=== PATIENT | male | born 1965 | race Caucasian/White ===

== ENCOUNTER 2018-06-23 13:27 | Observation (INO) | payer OTHER ==
--- NOTE | 2018-06-23 11:32 | CONS ---
GASTROENTEROLOGY CONSULT/HISTORY AND PHYSICAL DATE: 06/23/2018. CONSULTING PHYSICIAN: Lucille Morris. 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 His appetite decreased and his energy was down, but he was still able to go to work and bike around town as he likes to commute to work via biking. He noted his urine turned dark and then later his stools became light. He began feeling a little bit of heartburn. He did not have any fever or back pain or abdominal distention. He has never had anything like this before. His primary physicians have not needed to treat him for gastrointestinal problems. PAST MEDICAL HISTORY: 1. [place] tooth removal. 2. Hyperplastic polyps in the rectum at screening colonoscopy April 2018. MEDICATIONS: None as an outpatient Allergies - PCN SOCIAL HISTORY: He is . He eats a very healthy diet. 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 He was born in [facility] as his father was with the [facility]. 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 REVIEW OF SYSTEMS: He was treated for Lyme disease four or five years ago and says that was the most significant illness Dr Hall has ever needed to treat. There is no history of cardiac disease, angina, palpitations, syncope, murmur, hemoptysis, chronic cough, prior jaundice or liver disease. He drinks very sparingly. He is a nonsmoker. PHYSICAL EXAMINATION: He is a jaundiced man in no distress. HEENT exam is unremarkable. He has no adenopathy. His lungs are clear. Heart sounds are normal. The abdomen is symmetric, firm, and there is a little bit of discomfort with palpation in the right upper quadrant and a little bit of fullness. Rectal not indicated. Extremities show no edema or deformity. Neurologic is nonfocal, he gets about easily with a normal gait, cranial nerves , strength, and coordination. LABORATORY DATA: Two days ago, hemoglobin 13, bilirubin 14, amylase and lipase mildly elevated. INR drawn today and pending- (0.90) CT REVIEW: 3 cm pancreatic head mass with dilation of the pancreatic duct and bile ducts. Coronal images show probable impingement on the portal vein. There are no obvious mets. His slender build limits evaluation of the tissue planes around the pancreas. IMPRESSION: Pancreatic head mass with obstructive jaundice. His and father were present during a discussion (assisted by a diagram) about the priorities of relieving biliary obstruction and trying to establish tissues diagnosis, and then there is still the prospect of a surgical cure. His INR will be checked and ERCP may take place later today hopefully with placement of a plastic stent. He has been NPO since 11:00 p.m. last night. [id number]/[facility] #: [id number] MAXIMILIANO
[2018-06-23] MEDS ORDERED: Indomethacin SUPP(NF) 50 MG SUP PR ONE (14:00)
[2018-06-23] MEDS ORDERED: Famotidine IV* 10 MG/ML 2 ML (20 mg) IV ONE (14:28)
[2018-06-23] MEDS ORDERED: Buffered Lidocaine 0.9% SYRIN* 5 ML/SYR SYRINGE INTRADERM ONE (14:28)
[2018-06-23] MEDS ORDERED: Dexamethasone IV* 4 MG/ML 1 ML (4 MG) IV SLOW PU ONE (14:28)
[2018-06-23] MEDS ORDERED: Famotidine IV* 10 MG/ML 2 ML (20 mg) ONE (14:38)
[2018-06-23] MEDS ORDERED: Dexamethasone IV* 4 MG/ML 1 ML (4 MG) ONE (14:38)
[2018-06-23] MEDS ORDERED: Midazolam* 1 MG/ML 5 ML VIAL (5 MG) ONE (14:45)
[2018-06-23] MEDS ORDERED: fentaNYL* 50 MCG/ML 5 ML VIAL (250 MCG VIAL) ONE (14:45)
[2018-06-23] MEDS ORDERED: Atracurium* 10 MG/ML 10 ML VIAL ONE (14:45)
[2018-06-23] MEDS ORDERED: Propofol* 10 MG/ML 20 ML BTL IV PUSH ONE (14:50)
[2018-06-23] MEDS ORDERED: Lidocaine 2% PF * 5 ML VIAL ONE (14:50)
[2018-06-23] MEDS ORDERED: Ondansetron INJ* 2 MG/ML VIAL ONE (14:50)
[2018-06-23] MEDS ORDERED: Levofloxacin 500 MG IVPREMIX(* 500 MG/100 ML BAG IVPB ONE (15:00)
[2018-06-23] MEDS ORDERED: fentaNYL* 50 MCG/ML 2 ML VIAL (100 MCG VIAL) ONE (16:38)
[2018-06-23] MEDS ORDERED: DiMENhydriNATE IV* 50 MG/ML VIAL IV PUSH PRN (17:06)
[2018-06-23] MEDS ORDERED: fentaNYL* 50 MCG/ML 2 ML VIAL (100 MCG VIAL) IV PRN (17:06)
[2018-06-23] MEDS ORDERED: Naloxone* 0.4 MG/ML 1 ML VIAL IV PRN (17:06)
[2018-06-23] MEDS ORDERED: HYDROmorphone INJ* 0.5 MG/0.5 ML SYRINGE IV PRN (17:06)
[2018-06-23] MEDS ORDERED: Ondansetron INJ* 2 MG/ML VIAL IV PRN (17:06)
--- NOTE | 2018-06-23 18:09 | RAD ---
CPT II Codes: G9500 INDICATION: Pancreatic mass TECHNIQUE: Intraoperative fluoroscopy was provided during ERCP. FINDINGS: 4 spot films depict endoscopic retrograde cholangiography demonstrating narrowing of the lower half of the common bile duct with more proximal dilatation (exact diameter measurement is not possible without real-time calibration). Final image depicts an anatomically aligned CBD stent with the tip terminating at the expected location of the second portion the duodenum. Fluoroscopy time: 3 minutes and 32 seconds IMPRESSION: As above.
[2018-06-23] MEDS ORDERED: HYDROmorphone INJ1* 1 MG/ML SYRINGE IV SLOW PU PRN (19:00)
--- NOTE | 2018-06-23 21:01 | HP ---
ADMISSION HISTORY AND PHYSICAL: DATE OF ADMISSION: 06/23/18 CHIEF COMPLAINT: Painless jaundice and malaise 1 week prior to admission. HISTORY OF PRESENT ILLNESS: The patient is a 53-year-old gentleman without any significant past medical history other than hyperplastic polyps in his rectum that was done by a screening colonoscopy back in April of 2018 and wisdom tooth removal, who developed a sense of malaise as well as jaundice 1 week prior to admission. He mentioned that he has had decreased appetite and easy fatigability, but however, he was able to go to work in bike around town as he would like to commute to work by biking. He also noted that his urine was tea colored and his stools later became light. He then began feeling a little bit of some heartburn as well. He did not report any fevers nor abdominal pain nor distention. He was seen by Dr. Coleman in his office for his painless jaundice and has palpated an epigastric mass that is likely consistent with a pancreatic head mass and CT scan and abdominal ultrasound were done the day prior to admission. The ultrasound reveals a 3-cm pancreatic head/peripancreatic mass associated with biliary obstruction, and suggested multiphase CT imaging with pancreatic protocol. The abdominal CT and pelvis done on the same date suggests a 3-cm mass in the head of the pancreas with associated obstruction with gallbladder distention and intrahepatic ductal dilatation and dilatation of the pancreatic duct. He was then set up the following day for an ERCP with stent placement and he has done well perioperatively. The cholangiogram demonstrated narrowing of the lower half of the common bile duct with more proximal dilatation prior to the procedure and the final cholangiogram reveals an anatomically aligned CBD stent with a tip terminating at the expected location of the second part of the duodenum. He is being admitted to our service given pancreatic brushings as well as cholangiogram was done and we will watch him overnight to see whether he has any risk for post ERCP pancreatitis given he is high risk for this and hence this admission for observation. PAST MEDICAL AND SURGICAL HISTORY: [place] tooth removal, hyperplastic polyps in the rectum at screening colonoscopy in April 2018. MEDICATIONS: Home medications, none as an outpatient. ALLERGIES: To PENICILLIN, which causes rash. FAMILY HISTORY: His father has had history of prostate cancer, kidney stones, and gallbladder stones. No family history of diabetes, hypertension, CVA, hypercholesterolemia, and other carcinomas and absence of hepatobiliary cancer in the family history. 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 He was born in [facility], as his father is working for the [employer]. REVIEW OF SYSTEMS: The patient denied any recent headaches, dizziness, fevers, chills, nausea, vomiting, chest pain, shortness of breath, increased coughing or sputum production, abdominal pain, diarrhea, constipation, pain and/or increased frequency on urination, myalgias or arthralgias, throat pain. He does have new jaundice and easy fatigability and malaise as described above. The rest of the 14- point review of systems is otherwise unremarkable. PHYSICAL EXAMINATION GENERAL APPEARANCE: The patient is awake, alert, and oriented x3, not in acute distress. VITAL SIGNS: Reveal the most recent vital signs of records with blood pressure of 123/76, 63 beats per minute heart rate, 17 per minute respiratory rate, saturating at 98% on room air. HEENT: Normocephalic, atraumatic. PERRLA. Extraocular muscles intact. Negative for icterus. Moist oral mucosa. Negative throat erythema. NECK: Soft, supple with no cervical lymphadenopathy. No JVD. CHEST: Clear to auscultation bilaterally. Good air entry. No wheezes, rales, or rhonchi. HEART: S1, S2 within normal limits. Regular rate and rhythm. No murmurs, rubs , and gallops. ABDOMEN: Soft, nondistended, nontender. Normoactive bowel sounds x4 quadrants. EXTREMITIES: No cyanosis, clubbing, or edema. PSYCHIATRIC: No active psychosis, depression, suicidal or homicidal ideations. SKIN: Warm to touch. LABORATORY DATA: Most recent and pertinent laboratories revealed CBC with a WBC that is normal, platelets are normal, H and H slightly low at 13.9 and 39. Sodium and potassium were normal. BUN and creatinine were found to be normal. Total bilirubin was found be to 18.10, AST of 212, ALT of 618, ALP of 513. ASSESSMENT AND PLAN: 1. Painless pancreatic head mass with obstructive jaundice, status post ERCP with common bile duct stent placement. At this point, given he has received contrast via ERCP, he is certainly at risk for postprocedural pancreatitis. We will check amylase and lipase levels in a.m. and we will only place him at this point at sips of clear liquids and if he tolerates, we will place him on ad libitum diet, but clear liquids for now. I have discussed his case with Dr. Coleman. He mentions that tomorrow he will touch base with people at [facility] for a possible endoscopic ultrasound, either tomorrow or possibly next week. In either case, either he gets transferred or we will discharge him home as long as he is hemodynamically stable with no other medical issues. 2. Perioperative pain. The patient is currently pain-free and has received pain meds perioperatively. We will place the patient on 0.5 mg IV q.4 p.r.n. with appropriate holding orders. 3. DVT prophylaxis. We will place the patient on SCDs. The patient is at low risk and we will have the patient's activity be out of bed to chair with assist. 4. Disposition: As above. [id number]/[facility] #: [id number] MTDD
--- NOTE | 2018-06-24 01:49 | PRO ---
DATE: 06/23/18 - ROOM #[id number] REFERRING PHYSICIAN: Sergio Hall.* PROCEDURE: ERCP and sphincterotomy with biliary cytology and placement of 9 cm 8.5- Russian plastic stent. INDICATION: This 53-year-old man presented with painless jaundice. See separate consult history and physical. His bilirubin was 18 preprocedure, INR was 0.90. He had not had any fever. Informed consent was obtained in the office. ENDOSCOPIST: Dr. Coleman. ANESTHESIA: Dr. Bynum. MEDICATION: Levaquin 500 mg IV preprocedure and indomethacin suppository 50 mg. FINDINGS: He is a healthy appearing, jaundiced man, in no overt distress. He was positioned on the table semiprone with right shoulder elevated. ERCP: Esophagus - 20% views were normal. Stomach - summing insertion and withdrawal with an intentional retroflexion, 70 % to 80% views were normal. Duodenum - the pylorus and bulb appeared normal. The contours of the second through fourth portions of the duodenum were normal. Papilla - low profile and not discharging any fluid. A standard sphincterotome was inserted. Multiple attempts to cannulate were done, both with a free wire and with a slight bow to the sphincterotome which varied. The tip of the device was seemed consistently to deviate towards the 10:30 or 11 position. The sphincterotome was then rotated clockwise several turns in 2 different sequences. This had resulted in a different orientation of the cannula. Cannula went up into the common duct. Pancreatic duct was never injected. The guidewire was placed deeply into the liver. An estimated 9 to 10 mm sphincterotomy was done about a 2 o'clock orientation, there was no bleeding. A little bit of fluid discharge. Exchange was then made for the biliary cytology brush. The cytology brush was placed into the dilated segment of upper common duct and then withdrawn with agitation several times. This clearly functionally dilated the area as a fair amount of bile then discharged. There was no blood seen. Based on a long irregular ratty-looking stricture, a 9-cm 8.5-Russian stent was chosen and inserted with good position documented via postprocedure film and spillage of copious amounts of bile and drainage of the dye. IMPRESSION: 1. Generally normal upper GI anatomy - limited views. 2. 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 It has been brushed and stented. He will likely be referred to a major center for consideration of surgery though the length of the stricture is not good prognostically. Addendum; cytology read out as adenocarcinoma [id number]/[facility] #: [id number] MTDD
[2018-06-24 06:06] LABS: Hematocrit 37 % (42-52); Hemoglobin 12.7 g/dl (14.0-18.0); Mean Corpuscular HGB Conc 34 g/dl (31-36); Mean Corpuscular Hemoglobin 30 pg (27-31); Mean Corpuscular Volume 89 fL (80-94); Mean Platelet Volume 9.8 um3 (7.4-10.4); Platelet Count 194 10^3/ul (150-450); Red Cell Distribution Width 14 % (10.5-15); White Blood Count 13.4 10^3/ul (3.5-10.8)
[2018-06-24 08:44] VITALS: BP 124/82
[2018-06-24] MEDS ORDERED: Magnesium Oxide TAB* 400 MG PO ONE (08:54)
--- NOTE | 2018-06-24 14:00 | DS ---
CC: Dr. Prashanth Hall.* DISCHARGE SUMMARY: DATE OF ADMISSION: 06/23/18. DATE OF DISCHARGE: 06/24/18. PROVIDER: Tamy Husain NP. ATTENDING PHYSICIAN: Dr. Waters * (report dictated by Tamy Husain NP). PRIMARY CARE PROVIDER: Dr. Prashanth Hall. SULFONATION EQUIPMENT OPERATOR: Dr. Coleman. REFERRING TO: Dr. J Luis King. DISCHARGE DIAGNOSIS: Pancreatic head mass with obstructive jaundice status post ERCP with common bile duct stent placement. HISTORY OF PRESENT ILLNESS AND HOSPITAL COURSE: Please see history and physical by Dr. Langston for full admission details. But in summary, this is a 53-year-old male without significant past medical history other than hyperplastic polyps in his rectum, which was done by screening colonoscopy back in April 2018 who developed a sense of malaise a couple of weeks ago reporting his appetite decreased and his energy was low. However, he was still able to bike to work. The patient has reported he noted that his urine turned dark and later his stools became light and began to develop what he described as, "heartburn." He denied having any fevers, back pain, abdominal distension. He was noted to be jaundiced and he was seen by Dr. Coleman in the office for painless jaundice and there was concern for an epigastric mass upon palpation. The patient then underwent a CT scan and abdominal ultrasound in which the ultrasound revealed a 3-cm pancreatic head/peripancreatic mass associated with biliary obstruction and suggested multiphase CT imaging with pancreatic protocol. The abdominal CT and pelvis done in the same date suggested a 3-cm mass in the head of the pancreas with associated obstruction with gallbladder distension and intrahepatic ductal dilatation and dilatation of the pancreatic duct. He was sent up for an ERCP with stent placement which was done yesterday. Hull biopsies were taken, which are still pending at time of dictation. I spoke with Dr. Coleman this morning who has discussed the discharge plan with the patient. As well I spoke to the patient about the discharge instructions. The patient will follow up with Dr. J Luis King as well as follow up with Dr. Kapoor, oncologist. Today, on evaluation, the patient reports he would like to go home. He feels steady on his feet. Overall, he reports he feels better today after the stent placement. His labs on repeat are showing a decrease total bilirubin from 18.10 down to 7.60 today. His AST and ALTs are trending down as well as his amylase and lipase. The patient is tolerating oral intake. He denies any pain this morning. No fevers or chills. REVIEW OF SYSTEMS: A 14-point review of systems is performed. All the pertinent positives and negatives were mentioned in the history of present illness otherwise negative. PHYSICAL EXAMINATION: Vital Signs: Temperature 97.6, heart rate 57, O2 sat 98 % on room air, respirations 16, blood pressure is 122/71. General Appearance: Well- developed 53-year-old male sitting up at the side of the bed, appears jaundiced, in no acute distress, alert and oriented x3. HEENT: Head is normocephalic, atraumatic. Pupils are reactive to light. Scleral icterus noted bilaterally. Cardiac: S1, S2. Regular rate and rhythm. No murmurs, rubs or gallops appreciated. Lungs are clear to auscultation bilaterally. Good aeration throughout. Abdomen: Soft, mild epigastric tenderness with palpation. Normal bowel sounds throughout. Extremities: No clubbing, cyanosis or edema. Neurological: Alert and oriented x3. No focal deficits noted. Cranial nerves II through XII are grossly intact. Strength is 5/5 throughout with a steady gait. DISCHARGE MEDICATIONS: No medications. DISCHARGE PLAN: The patient will be discharged to home today. He is to follow up with Dr. J Luis King as well as Dr. Kapoor and reports he and Dr. Coleman had spoken and there is a plan set in place. Worsening signs and symptoms were discussed with the patient and to return to the emergency department with any concerns. Follow up with primary care provider within 1 week with followup labs on Thursday with results to PCP. TIME SPENT: Approximately 60 minutes were spent on this discharge. TAMY HUSAIN NP [id number]/[facility] #: [id number] MAXIMILIANO
== END 2018-06-24 10:30 | disposition home or self-care (01) ==
LOC: OR 13:27 → SSU 19:07
PROVIDERS: ADMIT Student in an Organized Health Care Education/Training Program; ATTEND Hospitalist
PROC: 0F798DZ Dilation of Common Bile Duct with Intraluminal Device, Via Natural or Artificial Opening Endoscopic (ICD-10-PCS; 2018-06-23)
PROC: 0FB98ZX Excision of Common Bile Duct, Via Natural or Artificial Opening Endoscopic, Diagnostic (ICD-10-PCS; principal; 2018-06-23 15:00)
DX: C24.0 Malignant neoplasm of extrahepatic bile duct (principal); K86.89 Other specified diseases of pancreas; R17 Unspecified jaundice; Z88.0 Allergy status to penicillin; Z87.19 Personal history of other diseases of the digestive system; Z80.42 Family history of malignant neoplasm of prostate
CPT/HCPCS: 36415; 74328; 80053; 82150; 83690; 83735; 84100; 85027; 88112; C1769; C1876; G0378; J1100; J1956; J2250; J2405; J2704; J3010

== ENCOUNTER 2018-07-19 06:07 | Day surgery (SDC) | payer OTHER ==
[~2018-07-19 06:07] MED LIST: Buffered Lidocaine 0.9% SYRIN* 5 ML/SYR SYRINGE INTRADERM ONE; Famotidine IV* 10 MG/ML 2 ML (20 mg) IV ONE
[2018-07-19] MEDS ORDERED: ceFAZolin 2 GM in NS PREMIX(*) 2 GM/100 ML BAG IVPB ONE (06:12)
[2018-07-19] MEDS ORDERED: Famotidine IV* 10 MG/ML 2 ML (20 mg) ONE (06:12)
[2018-07-19] MEDS ORDERED: Lidocaine 1% INJ* 10 MG/ML 30 ML SDV ONE (07:02)
[2018-07-19] MEDS ORDERED: Ondansetron INJ* 2 MG/ML VIAL ONE (07:05)
[2018-07-19] MEDS ORDERED: Midazolam* 1 MG/ML 5 ML VIAL (5 MG) ONE (07:05)
[2018-07-19] MEDS ORDERED: Ketorolac INJ* 30 MG/ML 1 ML VIAL ONE (07:05)
[2018-07-19] MEDS ORDERED: KETAMINE HCL* 50 MG/ML 10 ML VIAL ONE (07:05)
[2018-07-19] MEDS ORDERED: Lidocaine 2% PF * 5 ML VIAL ONE (07:05)
[2018-07-19] MEDS ORDERED: Propofol* 10 MG/ML 20 ML BTL IV PUSH ONE (07:05)
[2018-07-19] MEDS ORDERED: Dexamethasone IV* 4 MG/ML 1 ML (4 MG) ONE (07:05)
[2018-07-19] MEDS ORDERED: fentaNYL* 50 MCG/ML 2 ML VIAL (100 MCG VIAL) ONE (07:05)
[2018-07-19] MEDS ORDERED: Midazolam* 1 MG/ML 2 ML VIAL (2 MG) ONE (07:35)
[2018-07-19] MEDS ORDERED: Naloxone* 0.4 MG/ML 1 ML VIAL IV PRN (08:02)
[2018-07-19] MEDS ORDERED: oxyCODONE/Acetamin 5/325 MG* TAB PO PRN (08:02)
[2018-07-19] MEDS ORDERED: fentaNYL* 50 MCG/ML 2 ML VIAL (100 MCG VIAL) IV PRN (08:02)
[2018-07-19] MEDS ORDERED: DiMENhydriNATE IV* 50 MG/ML VIAL IV PUSH PRN (08:02)
--- NOTE | 2018-07-19 08:41 | BRIEFOPN ---
Brief Operative Note - Surgery Procedures: Procedures OPERATIVE REPORT PRE-OP: Pancreatic cancer POST-OP: Same PROCEDURE:Insertion of 8F left chest wall PowerPort, needle in SURGEON: MD Justino ANESTHESIA:Local with MAC Dr. Boykin ASST: none IVF:min EBL:min SPECIMEN:none DRAIN: none WOUND CLASS:One COMPLICATIONS: none TO PACU
--- NOTE | 2018-07-19 09:16 | RAD ---
Indication: Power port placement. Comparison: July 07, [address] Technique: Upright AP 0846 hours Report: LEFT PowerPort catheter tip at level of superior vena cava directed central. No focal pulmonary lesion, compelling alveolar consolidation, pleural effusion, pneumothorax. The heart, pulmonary vasculature, and mediastinal contours are unremarkable. IMPRESSION: #. Unremarkable post procedure radiograph after LEFT chest port placement.
[2018-07-19 09:44] VITALS: BP 120/74
--- NOTE | 2018-07-19 10:37 | RAD ---
CPT II Codes: G9500 INDICATION: Pancreatic cancer TECHNIQUE: Intraoperative fluoroscopy was provided during Mediport placement. FINDINGS: 2 spot films depict left subclavian vein Mediport placement with the tip of the catheter at the cavoatrial junction. Immediately inferior to the subcutaneous port is a curved metallic object consistent with a curved suture needle. Fluoroscopy time: 87.4 seconds IMPRESSION: 1. Left subclavian vein Mediport placement with the tip at the cavoatrial junction. 2. Immediately inferior to the left Mediport is a curved metallic object consistent with a suture needle.
--- NOTE | 2018-07-19 22:35 | OP ---
CC: Virgil Kapoor MD * DATE OF OPERATION: 07/19/18 - [facility] DATE OF : 69 SURGEON: Luke Badillo MD EMBEDDED LINUX DEVELOPER: None. ANESTHESIOLOGIST: Dr. Boykin. ANESTHESIA: Local with monitored anesthesia care. PRE-OP DIAGNOSIS: Pancreatic cancer. POST-OP DIAGNOSIS: Pancreatic cancer. OPERATIVE PROCEDURE: Insertion of a left chest wall 8-Pashto PowerPort, needle in. ESTIMATED BLOOD LOSS: Minimal. IV FLUIDS: Minimal. SPECIMENS: None. WOUND CLASSIFICATION: One. DRAINS: None. DESCRIPTION OF PROCEDURE: Written informed consent was obtained, the left chest was marked with inedible ink and preoperative antibiotics were administered. The patient was taken to the operating room and placed in a supine position. Sequential compression devices were placed in the lower extremities and a warming blanket was applied. The left and right chest and neck were prepped and draped in the usual sterile fashion. Time-out verification was completed. The patient was placed in Trendelenburg position and 1% lidocaine was infiltrated in the left chest wall just below the mid portion of the clavicle and using an 18- gauge Geiger needle, the subclavian vein was punctured on the first pass the clavicle with good blood return. The guidewire was inserted without difficulty and confirmed to be into the superior vena cava by fluoroscopy. Next, additional lidocaine was infiltrated inferior to my stick site and a transverse incision was made and a subcutaneous pocket was made large enough to permit the port to be placed subcutaneously. The catheter was then tunneled from the initial puncture site to the pocket site , and using a sheath dilator peel-away system the catheter was inserted into the junction between the superior vena cava and the right atrium. The catheter was then cut to the appropriate length. It blanche blood well and flushed distally without difficulty. It was then attached to the port and placed in the subcutaneous pocket. The port was sutured in two places with 3-0 Prolene suture to the underlying muscle fascia. Hemostasis was assured. The incisions were closed in layers of 3-0 and 4-0 Vicryl suture and Steri-Strips, sterile dressings were applied. The right angle Moctezuma needle was then used to access the port through sterile field and flushed and withdrew blood well. It was subsequently flushed at the end with heparin solution and the needle remained in place and the catheter was clamped and covered with a sterile Tegaderm dressing. The patient tolerated the procedure well, was taken to the recovery room in stable condition. Postprocedural chest x-ray showed the catheter to be in good position without evidence of pneumothorax. [id number]/[facility] #: [id number] MTDD
== END 2018-07-19 09:47 | disposition home or self-care (01) ==
LOC: OR 06:07
PROVIDERS: ATTEND Surgery
DX: C25.0 Malignant neoplasm of head of pancreas (principal)
CPT/HCPCS: 71045; 76000; C1788; J0690; J1100; J1642; J1885; J2250; J2405; J2704; J3010

== ENCOUNTER 2018-08-28 02:17 | Emergency (ER) | payer OTHER ==
--- NOTE | 2018-08-28 03:12 | ED ---
HPI Febrile Illness - HPI Summary HPI Summary: This patient is a 53 year old M presenting to [facility] accompanied by his sister with a chief complaint of a fever over 101.4 degrees since 01:45. The patient rates the pain 0/10 in severity. Symptoms aggravated by nothing. Symptoms alleviated by nothing. Patient reports nausea. Patient has pancreatic CA, diagnosed in early June 2018, and is undergoing chemotherapy. Pt notes his last session was 5 days ago. 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 Patient denies any other medical conditions. - History of Current Complaint Chief Complaint: EDFever Time Seen by Provider: 08/28/18 02:45 Hx Obtained From: Patient, Family/Bottom Stop Attacher - patient's sister Onset/Duration: Started Hours Ago, Worse Since Timing: Lasting Hours Initial Severity: Mild Current Severity: Mild Pain Intensity: 0 Pain Scale Used: 0-10 Numeric Aggravating Factors: Nothing Alleviating Factors: Nothing Associated Signs and Symptoms: Nausea - Additional Pertinent History Primary Care Physician: LIDA - Allergy/Home Medications Allergies/Adverse Reactions: Allergies Allergy/AdvReac Type Severity Reaction Status Date / Time Penicillins Allergy Mild Rash Verified 08/28/18 02:25 PMH/Surg Hx/FS Hx/Imm Hx Endocrine/Hematology History: Denies: Hx Anticoagulant Therapy, Hx Blood Transfusions, Hx Bone Marrow Disease, Hx Diabetes, Hx Anemia Respiratory History: Reports: Hx Seasonal Allergies Denies: Hx Asthma, Hx Chronic Bronchitis, Hx Chronic Obstructive Pulmonary Disease (COPD), Hx Cystic Fibrosis, Hx Lung Cancer, Hx Pleural Effusion, Hx Pneumonia, Hx Pulmonary Edema, Hx Pulmonary Embolism, Hx Sleep Apnea, Other Respiratory Problems/Disorders GI History: Reports: Hx Gall Bladder Disease - this visit, Hx Jaundice - RECENT DX HAD STENT PLACED Denies: Hx Cirrhosis, Hx Crohn's Disease, Hx Diverticulosis, Hx Gastroesophageal Reflux Disease, Hx Gastrointestinal Bleed, Hx Hiatal Hernia, Hx Irritable Bowel, Hx Obstructive Bowel, Hx Ileostomy, Hx Pyloric Stenosis, Hx Ulcer, Other GI Disorders History: Denies: Hx Acute Renal Failure, Hx Benign Prostatic Hyperplasia, Hx Chronic Renal Failure, Hx Dialysis, Hx Kidney Infection, Hx Kidney Stones, Other Problems/Disorders Musculoskeletal History: Denies: Hx Arthritis, Hx Back Problems, Hx Bursitis, Hx Congenital Bone Abnormalities, Hx Fibromyalgia, Hx Gout, Hx Orthopedic Injury, Hx Osteoporosis, Hx Scoliosis, Hx Tendonitis Sensory History: Reports: Hx Contacts or Glasses - glasses Denies: Hx Hearing Aid Opthamlomology History: Reports: Hx Contacts or Glasses - glasses Neurological History: Denies: Hx Dementia, Hx Headaches, Hx Migraine, Hx Nerve Disease - Cancer History Hx Chemotherapy: No - will be starting chemo after powerport placed - Surgical History Surgery Procedure, Year, and Place: WISDOM TOOTH REMOVED Hx Anesthesia Reactions: No Infectious Disease History: No Infectious Disease History: Denies: Hx Hepatitis, Hx Tuberculosis, Traveled Outside the [place] in Last 30 Days - Family History Known Family History: Negative: Diabetes - Social History Alcohol Use: None Substance Use Type: Reports: None Smoking Status (MU): Never Smoked Tobacco Review of Systems Positive: Fever Negative: Chest Pain Negative: Cough Positive: Nausea Negative: Rash All Other Systems Reviewed And Are Negative: Yes Physical Exam - Summary Physical Exam Summary: GENERAL: Patient is a well-developed and nourished M who is lying comfortable in the stretcher. Patient is not in any acute respiratory distress. HEAD AND FACE: Normocephalic EYES: PERRLA, EOMI x 2. EARS: Hearing grossly intact. MOUTH: Oropharynx within normal limits. NECK: Supple, trachea is midline, no adenopathy, no JVD, no carotid bruit. CHEST: Symmetric, no tenderness at palpation LUNGS: Clear to auscultation bilaterally. No wheezing or crackles. CVS: Regular rate and rhythm, S1 and S2 present, no murmurs or gallops appreciated. ABDOMEN: Soft, non-tender. Bowel sounds are normal. No abdominal abnormal pulsations. EXTREMITIES: Full ROM in all major joints, no edema, no cyanosis or clubbing. NEURO: Alert and oriented x 3. No acute neurological deficits. Speech is normal and follows commands. SKIN: Dry and warm Triage Information Reviewed: Yes Vital Signs On Initial Exam: Initial Vitals Temp Pulse Resp BP Pulse Ox 100.7 F 114 16 125/79 98 08/28/18 02:20 08/28/18 02:20 08/28/18 02:20 08/28/18 02:20 08/28/18 02:20 Vital Signs Reviewed: Yes Diagnostics - Vital Signs Vital Signs Temp Pulse Resp BP Pulse Ox 08/28/18 02:20 100.7 F 114 16 125/79 98 - Laboratory Result Diagrams: 08/28/18 04:08 08/28/18 04:08 Lab Statement: Any lab studies that have been ordered have been reviewed, and results considered in the medical decision making process. - Radiology CXR Radiology Interpretation Completed By: ED Physician - pending official report Summary of Radiographic Findings: no acute cardiopulmonary disease. Course/Dx - Course Course Of Treatment: This patient is a 53 year old M presenting to [facility] accompanied by his sister with a chief complaint of nausea and fever over 101.4 degrees since 01:45. Patient has pancreatic CA, diagnosed in early June 2018, and last had chemotherapy 5 days ago. CXR reveals, per radiologist, no acute cardiopulmonary disease. Discussed care and imaging results with Dr. Greenwood who advises discharging the patient. The patient will be discharged. I discussed results with patient and he reports feeling better. He is hemodynamically stable and safe for discharge. Strict return precautions given and he will otherwise follow up with his PCP. - Diagnoses Provider Diagnoses: Viral syndrome - Provider Notifications Discussed Care Of Patient With: Sol Greenwood Time Discussed With Above Provider: 05:10 Instructed by Provider To: Other - Discussed care and imaging results with Dr. Greenwood who advises discharging the patient. Discharge - Sign-Out/Discharge Documenting (check all that apply): Patient Departure - discharge home - Discharge Plan Condition: Stable Disposition: HOME Patient Education Materials: Viral Syndrome (ED) Referrals: Ihsan Hall MD [Primary Care Provider] - 1 Day Additional Instructions: Follow up with primary care physician in 1-3 days. Return to the emergency department with any new or worsening symptoms. - Billing Disposition and Condition Condition: STABLE Disposition: Home - Attestation Statements Document Initiated by aCrlosibe: Yes Documenting Scribe: Raine Brown Provider For Whom Moses is Documenting (Include Credential): Teodora Emery MD Scribe Attestation: Raine Vu, kunaled for Teodora Emery MD on 08/29/18 at 0338. Scribe Documentation Reviewed: Yes Provider Attestation: The documentation as recorded by the scribeRaine accurately reflects the service I personally performed and the decisions made by me, Ho Emery MD
[2018-08-28] MEDS ORDERED: Vancomycin(*) 1,000 MG in NS 0.9% 250 ML* 250 ML IVPB ONE (03:17)
[2018-08-28] MEDS ORDERED: Lidocaine 2.5%/Prilocain 2.5%* 5 GM TUBE ONE (03:17)
[2018-08-28] MEDS ORDERED: Aztreonam (*) 1 GM in NS 0.9% 50 ML* 50 ML IVPB SCH (03:18)
[2018-08-28] MEDS ORDERED: Lidocaine 2.5%/Prilocain 2.5%* 5 GM TUBE TOPICAL ONE (03:20)
[2018-08-28] MEDS ORDERED: Acetaminophen TAB* 325 MG PO ONE (03:54)
[2018-08-28] MEDS: NS 0.9% 1000 ML* 2,000 ML IV ONE (04:14)
[2018-08-28 04:21] LABS: ABS Basophils 0 10^3/ul (0-0.2); ABS Eosinophils 0 10^3/ul (0-0.6); ABS Lymphocytes 0.9 10^3/ul (1.0-4.8); ABS Monocytes 0.7 10^3/ul (0-0.8); ABS Neutrophils 6.8 10^3/ul (1.5-7.7); ABS Nucleated RBC 0 10^3/ul; Eosinophil % 0.1 % (0-6); Hematocrit 33 % (42-52); Hemoglobin 11.8 g/dl (14.0-18.0); Lymphocyte % 10.3 % (25-47); Mean Corpuscular HGB Conc 36 g/dl (31-36); Mean Corpuscular Hemoglobin 31 pg (27-31); Mean Corpuscular Volume 86 fL (80-94); Nucleated Red Blood Cells % 0; Platelet Count 104 10^3/ul (150-450); Red Blood Count 3.86 10^6/ul (4.00-5.40); Red Cell Distribution Width 14 % (10.5-15); White Blood Count 8.5 10^3/ul (3.5-10.8)
[2018-08-28 04:29] LABS: INR 1.04 (0.77-1.02)
[2018-08-28 04:39] LABS: EGFR Non-African American 104.9 (>60)
[2018-08-28 05:22] LABS: Urine Appearance Clear; Urine Blood Negative (Negative); Urine Color Yellow; Urine Ketones Negative (Negative); Urine Protein Negative (Negative); Urine Specific Gravity 1.013 (1.010-1.030); Urine Urobilinogen Negative (Negative)
[2018-08-28 06:44] VITALS: BP 118/74
--- NOTE | 2018-08-28 11:12 | RAD ---
INDICATION: Fever and a patient with a history of pancreatic cancer COMPARISON: Most recent comparison chest x-rays dated July 19, 2018 TECHNIQUE: PA and lateral views of the chest were obtained. FINDINGS: Again seen is a left upper chest subclavian vein Mediport with the tip terminating at the cavoatrial junction The heart and mediastinum are normal in size and contour. The lungs are grossly clear. There is no evidence of large pleural effusion. Degenerative changes of the thoracic spine includes loss of intervertebral disc height at the mid-level lower thoracic spine. There is no radiographic evidence of free air beneath the diaphragm IMPRESSION: No radiographic evidence of acute cardiopulmonary disease. R0
== END 2018-08-28 06:57 | disposition home or self-care (01) ==
LOC: ED 02:17
DX: B34.9 Viral infection, unspecified (principal); C25.9 Malignant neoplasm of pancreas, unspecified
CPT/HCPCS: 36415; 71046; 80053; 81003; 83605; 83880; 84145; 84484; 85025; 85610; 85730; 86140; 87040; 96360; 96361; 96374; 96375; 99283; 99284; A9270-GY; J1642

== ENCOUNTER 2018-10-23 05:49 | Emergency (ER) | payer OTHER ==
[2018-10-23] MEDS ORDERED: NS 0.9% 1000 ML* 1,000 ML IV ONE (06:05)
--- NOTE | 2018-10-23 06:30 | ED ---
Influenza-Like Illness - HPI Summary HPI Summary: Patient is a 53-year-old male with history of pancreatic CA presenting to the ED with intermittent fevers since last evening. He is currently receiving chemotherapy and his primary is Dr. Kapoor. He endorses sick contacts, family members with "colds." He states per [facility], he has a protocol to come to the emergency room with a temperature spikes above 100.5. He is also endorsing sweats and chills. He arrives today with a list of his temperatures taken over the past 4 hours, the highest 2 hours ago at 102.1. He did not take anything [id number] for relief as 30 minutes later the temperature dropped spontaneously to 100.0 and on arrival is within normal range at 98.4. He requests upon arrival the provider calls the on-call oncologist to receive further direction upon management of symptoms and any findings. 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 Medications include Folfirinox, flouroucacil, levcovorin, aloxi, dexamethasone, aprepitant, atropine, lovenox injection and ativan and zofran as needed. Denies SOB, CP, urinary or abd sxs, back pain, difficulty with eating or drinking, JONES, fatigue. Endorses sore throat, but denies any myalgias. Denies known flu contacts. - History of Current Complaint Chief Complaint: EDFever Time Seen by Provider: 10/23/18 06:04 Hx Obtained From: Patient, Family/Dispatcher Radio Onset/Duration: Gradual Onset Severity: Moderate Associated Signs & Symptoms: Fever, T Max - 102.1, F/C, Sore Throat - Risk Factors Influenza Risk Factors: Chronic Medical or Immunosuppresive Condition - Allergy/Home Medications Allergies/Adverse Reactions: Allergies Allergy/AdvReac Type Severity Reaction Status Date / Time Penicillins Allergy Mild Rash Verified 10/23/18 06:06 Home Medications: Home Medications Calcium Carbonate [Tums] 200 mg PO SEE INSTRUCTIONS PRN 10/23/18 [History Confirmed 10/23/18] Cholecalciferol (Vitamin D3) [Vitamin D3] 2,000 unit PO DAILY 10/23/18 [History Confirmed 10/23/18] Enoxaparin(*) 120 mg SUBCUT DAILY 10/23/18 [History Confirmed 10/23/18] Hyoscyamine Sulfate 0.125 mg PO DAILY 10/23/18 [History Confirmed 10/23/18] LORazepam [Ativan 0.5 MG TAB] 0.5 mg PO QID 10/23/18 [History Confirmed 10/23/18 ] Ondansetron HCl [Zofran 4 MG TAB] 4 mg PO Q4HR PRN 10/23/18 [History Confirmed 10/23/18] Sennosides [Kp Senna] 17.2 mg PO DAILY 10/23/18 [History Confirmed 10/23/18] diphenhydrAMINE HCl [Benadryl Allergy] 25 mg PO BEDTIME 10/23/18 [History Confirmed 10/23/18] PMH/Surg Hx/FS Hx/Imm Hx Previously Healthy: No - immunosupressed, [facility] patient receiving chemotherapy Endocrine/Hematology History: Denies: Hx Anticoagulant Therapy, Hx Blood Transfusions, Hx Bone Marrow Disease, Hx Diabetes, Hx Anemia Respiratory History: Reports: Hx Seasonal Allergies Denies: Hx Asthma, Hx Chronic Bronchitis, Hx Chronic Obstructive Pulmonary Disease (COPD), Hx Cystic Fibrosis, Hx Lung Cancer, Hx Pleural Effusion, Hx Pneumonia, Hx Pulmonary Edema, Hx Pulmonary Embolism, Hx Sleep Apnea, Other Respiratory Problems/Disorders GI History: Reports: Hx Gall Bladder Disease - this visit, Hx Jaundice - RECENT DX HAD STENT PLACED Denies: Hx Cirrhosis, Hx Crohn's Disease, Hx Diverticulosis, Hx Gastroesophageal Reflux Disease, Hx Gastrointestinal Bleed, Hx Hiatal Hernia, Hx Irritable Bowel, Hx Obstructive Bowel, Hx Ileostomy, Hx Pyloric Stenosis, Hx Ulcer, Other GI Disorders History: Denies: Hx Acute Renal Failure, Hx Benign Prostatic Hyperplasia, Hx Chronic Renal Failure, Hx Dialysis, Hx Kidney Infection, Hx Kidney Stones, Other Problems/Disorders Musculoskeletal History: Denies: Hx Arthritis, Hx Back Problems, Hx Bursitis, Hx Congenital Bone Abnormalities, Hx Fibromyalgia, Hx Gout, Hx Orthopedic Injury, Hx Osteoporosis, Hx Scoliosis, Hx Tendonitis Sensory History: Reports: Hx Contacts or Glasses - glasses Denies: Hx Hearing Aid Opthamlomology History: Reports: Hx Contacts or Glasses - glasses Neurological History: Denies: Hx Dementia, Hx Headaches, Hx Migraine, Hx Nerve Disease - Cancer History Hx Chemotherapy: No - will be starting chemo after powerport placed - Surgical History Surgery Procedure, Year, and Place: WISDOM TOOTH REMOVED Hx Anesthesia Reactions: No - Immunization History Hx Pertussis Vaccination: No Immunizations Up to Date: Yes Infectious Disease History: No Infectious Disease History: Denies: Hx Hepatitis, Hx Tuberculosis, Traveled Outside the [place] in Last 30 Days - Family History Known Family History: Negative: Diabetes - Social History Occupation: Unemployed Lives: With Family Alcohol Use: None Hx Substance Use: Yes Substance Use Type: Reports: Marijuana Hx Tobacco Use: No Smoking Status (MU): Never Smoked Tobacco Review of Systems Positive: Fever, Skin Diaphoresis. Negative: Chills, Fatigue Negative: Photophobia, Blurred Vision, Diplopia, Drainage Positive: Sore Throat. Negative: Ear Ache, Nasal Discharge Negative: Palpitations, Chest Pain Negative: Shortness Of Breath, Cough Negative: Abdominal Pain, Vomiting, Diarrhea, Nausea Genitourinary: Negative Positive: no symptoms reported, see HPI Negative: Arthralgia, Myalgia, Edema Negative: Rash, Bruising Negative: Headache, Weakness, Paresthesia, Numbness, Syncope, Slurred Speech All Other Systems Reviewed And Are Negative: Yes Physical Exam Triage Information Reviewed: Yes Vital Signs On Initial Exam: Initial Vitals Temp Pulse Resp BP Pulse Ox 98.4 F 105 18 124/78 98 10/23/18 05:55 10/23/18 05:55 10/23/18 05:55 10/23/18 05:55 10/23/18 05:55 Vital Signs Reviewed: Yes Appearance: Positive: Well-Appearing, No Pain Distress, Well-Nourished Skin: Positive: Warm, Diaphoretic Head/Face: Positive: Normal Head/Face Inspection Eyes: Positive: EOMI, RENEE, Conjunctiva Clear ENT: Positive: Pharynx normal, Uvula midline. Negative: Pharyngeal erythema, Nasal congestion, Nasal drainage, Tonsillar swelling, Tonsillar exudate, Hoarse voice, Dental tenderness, Sinus tenderness Neck: Positive: Supple, Nontender, No Lymphadenopathy Respiratory/Lung Sounds: Positive: Clear to Auscultation, Breath Sounds Present Cardiovascular: Positive: RRR, Pulses are Symmetrical in both Upper and Lower Extremities. Negative: Leg Edema Left, Leg Edema Right Abdomen Description: Positive: Nontender, No Organomegaly, Soft Musculoskeletal: Positive: Strength/ROM Intact Neurological: Positive: Normal, Sensory/Motor Intact, Alert, Oriented to Person Place, Time, Speech Normal Psychiatric: Positive: Normal, Affect/Mood Appropriate AVPU Assessment: Alert Diagnostics - Vital Signs Vital Signs Temp Pulse Resp BP Pulse Ox 10/23/18 05:55 98.4 F 105 18 124/78 98 - Laboratory Result Diagrams: 10/23/18 06:26 10/23/18 06:26 Lab Statement: Any lab studies that have been ordered have been reviewed, and results considered in the medical decision making process. Re-Evaluation - Re-Evaluation First Eval Change: Unchanged - patient feeling unchanged since arrival, slightly diaphoretic but offers no complaints Flu Symptom Course/Dx - Course Course Of Treatment: Patient is evaluted for fevers and sore throat since last night. Per [facility] protocols, he is to come to the ED if he develops fevers above 100.5. Temp last evening was highest at 102.1. Strep and flu negative. Chest xray shows no intrathoracic or pulmonary disease. UA: Negative. Oncology consulted. Dr. Greenwood recommends discharge home with follow up to Dr. Kapoor and return precautions are given. - Diagnoses Differential Diagnosis/HQI/PQRI: Positive: Other - viral syndrome Provider Diagnoses: Fever Discharge - Sign-Out/Discharge Documenting (check all that apply): Patient Departure - Discharge Plan Condition: Stable Disposition: HOME Referrals: Ihsan Hall MD [Primary Care Provider] - Additional Instructions: Please follow up with Dr. Kapoor as scheduled If you develop any worsening symptoms or high temps not improving with tylenol - return to the ED - Billing Disposition and Condition Condition: STABLE Disposition: Home
[2018-10-23 06:40] LABS: ABS Basophils 0 10^3/ul (0-0.2); ABS Eosinophils 0 10^3/ul (0-0.6); ABS Lymphocytes 0.9 10^3/ul (1.0-4.8); ABS Monocytes 0.6 10^3/ul (0-0.8); ABS Neutrophils 2.9 10^3/ul (1.5-7.7); ABS Nucleated RBC 0 10^3/ul; Eosinophil % 0.4 %; Hematocrit 33 % (42-52); Hemoglobin 11.7 g/dl (14.0-18.0); Lymphocyte % 19.9 %; Mean Corpuscular HGB Conc 35 g/dl (31-36); Mean Corpuscular Hemoglobin 32 pg (27-31); Mean Corpuscular Volume 90 fL (80-94); Mean Platelet Volume 8.3 fL (7.4-10.4); Nucleated Red Blood Cells % 0; Platelet Count 91 10^3/ul (150-450); Red Blood Count 3.72 10^6/ul (4.00-5.40); Red Cell Distribution Width 16 % (10.5-15); White Blood Count 4.4 10^3/ul (3.5-10.8)
[2018-10-23 06:55] LABS: Albumin 3.9 g/dL (3.2-5.2); Albumin/Globulin Ratio 1.6 (1-3); BUN/Creatinine Ratio 9.3 (8-20); C Reactive Protein 6.53 mg/L (<8.01); Calcium 9.3 mg/dL (8.6-10.3); EGFR Non-African American 93.8 (>60); Globulin 2.4 g/dL (2-4); Potassium 3.8 mmol/L (3.5-5.0); Total Bilirubin 0.4 mg/dL (0.2-1.0); Total Protein 6.3 g/dL (6.4-8.9)
[2018-10-23 07:59] LABS: Urine Appearance Clear; Urine Bilirubin Negative (Negative); Urine Blood Negative (Negative); Urine Color Yellow; Urine Glucose Negative (Negative); Urine Ketones Negative (Negative); Urine Nitrite Negative (Negative); Urine Protein Negative (Negative); Urine Specific Gravity 1.021 (1.010-1.030); Urine Urobilinogen Negative (Negative)
[2018-10-23 08:21] VITALS: BP 107/63
== END 2018-10-23 08:21 | disposition home or self-care (01) ==
LOC: ED 05:49
DX: R50.9 Fever, unspecified (principal); Z88.0 Allergy status to penicillin; Z85.07 Personal history of malignant neoplasm of pancreas; R06.02 Shortness of breath
CPT/HCPCS: 36415; 71046; 80053; 81003; 83605; 85025; 86140; 87040; 87651; 99283

== ENCOUNTER 2019-03-21 02:35 | Emergency (ER) | payer OTHER ==
--- NOTE | 2019-03-21 02:53 | ED ---
Abdominal Pain/Male - HPI Summary HPI Summary: Patient is a 54 y/o M presenting to ED with complaints of sudden onset RUQ pain on 03/20/19 around 2200. He notes a brief episode of N/V at 0215 but notes this resolved quickly. Patient states that he had a bowel movement at 0215 which was normal. PMHx of pancreatic cancer, he is not currently receiving chemo or radiotherapy but has previously. He is followed by Dr. Kapoor at [facility] as well as oncology at [facility], he notes he is scheduled for abdominal surgery in a month. Patient denies any previous abdominal surgeries. On triage, pain is rated 5/10. Nothing is noted to aggravate/alleviate Sx. Home medications and allergies are reviewed. - History of Current Complaint Chief Complaint: EDAbdPain Stated Complaint: "ABD PAIN" PER PT Time Seen by Provider: 03/21/19 02:45 Hx Obtained From: Patient Onset/Duration: Lasting Hours - 03/20/19 around 2200, Still Present, Resolved - N /V Timing: Constant, Intermittent - N/V, Lasting Hours - 03/20/19 around 2200 Severity Currently: Moderate Pain Intensity: 5 Pain Scale Used: 0-10 Numeric Location: Discrete At: RUQ Aggravating Factor(s): Nothing Alleviating Factor(s): Nothing Associated Signs And Symptoms: Positive: Nausea, Vomiting. Negative: Fever - on vitals, temp is 98.1 F, Constipation - Allergies/Home Medications Allergies/Adverse Reactions: Allergies Allergy/AdvReac Type Severity Reaction Status Date / Time Penicillins Allergy Mild Rash Verified 03/21/19 02:37 PMH/Surg Hx/FS Hx/Imm Hx Endocrine/Hematology History: Denies: Hx Anticoagulant Therapy, Hx Blood Transfusions, Hx Bone Marrow Disease, Hx Diabetes, Hx Anemia Respiratory History: Reports: Hx Seasonal Allergies Denies: Hx Asthma, Hx Chronic Bronchitis, Hx Chronic Obstructive Pulmonary Disease (COPD), Hx Cystic Fibrosis, Hx Lung Cancer, Hx Pleural Effusion, Hx Pneumonia, Hx Pulmonary Edema, Hx Pulmonary Embolism, Hx Sleep Apnea, Other Respiratory Problems/Disorders GI History: Reports: Hx Gall Bladder Disease - this visit, Hx Jaundice - RECENT DX HAD STENT PLACED Denies: Hx Cirrhosis, Hx Crohn's Disease, Hx Diverticulosis, Hx Gastroesophageal Reflux Disease, Hx Gastrointestinal Bleed, Hx Hiatal Hernia, Hx Irritable Bowel, Hx Obstructive Bowel, Hx Ileostomy, Hx Pyloric Stenosis, Hx Ulcer, Other GI Disorders History: Denies: Hx Acute Renal Failure, Hx Benign Prostatic Hyperplasia, Hx Chronic Renal Failure, Hx Dialysis, Hx Kidney Infection, Hx Kidney Stones, Other Problems/Disorders Musculoskeletal History: Denies: Hx Arthritis, Hx Back Problems, Hx Bursitis, Hx Congenital Bone Abnormalities, Hx Fibromyalgia, Hx Gout, Hx Orthopedic Injury, Hx Osteoporosis, Hx Scoliosis, Hx Tendonitis Sensory History: Reports: Hx Contacts or Glasses - glasses Denies: Hx Hearing Aid Opthamlomology History: Reports: Hx Contacts or Glasses - glasses Neurological History: Denies: Hx Dementia, Hx Headaches, Hx Migraine, Hx Nerve Disease - Cancer History Hx Chemotherapy: No - will be starting chemo after powerport placed - Surgical History Surgery Procedure, Year, and Place: WISDOM TOOTH REMOVED Hx Anesthesia Reactions: No Infectious Disease History: No Infectious Disease History: Denies: Hx Hepatitis, Hx Tuberculosis, Traveled Outside the [place] in Last 30 Days - Family History Known Family History: Negative: Diabetes - Social History Alcohol Use: None Hx Substance Use: Yes Substance Use Type: Reports: None Hx Tobacco Use: No Smoking Status (MU): Never Smoked Tobacco Review of Systems Negative: Fever - on vitals, temp is 98.1 F Gastrointestinal: Other - NEGATIVE - CONSTIPATION Positive: Abdominal Pain, Vomiting, Nausea All Other Systems Reviewed And Are Negative: Yes Physical Exam - Summary Physical Exam Summary: VITAL SIGNS: Reviewed. GENERAL: Patient is a well-developed and nourished male who is lying comfortable in the stretcher. Patient is not in any acute respiratory distress. HEAD AND FACE: No signs of trauma. No ecchymosis, hematomas or skull depressions. No sinus tenderness. EYES: PERRLA, EOMI x 2, No injected conjunctiva, no nystagmus. EARS: Hearing grossly intact. Ear canals and tympanic membranes are within normal limits. MOUTH: Oropharynx within normal limits. NECK: Supple, trachea is midline, no adenopathy, no JVD, no carotid bruit, no c- spine tenderness, neck with full ROM CHEST: Symmetric, no tenderness at palpation LUNGS: Clear to auscultation bilaterally. No wheezing or crackles. CVS: Regular rate and rhythm, S1 and S2 present, no murmurs or gallops appreciated. ABDOMEN: Soft, RUQ tenderness. No signs of distention. No rebound no guarding, and no masses palpated. Bowel sounds are normal. EXTREMITIES: FROM in all major joints, no edema, no cyanosis or clubbing. NEURO: Alert and oriented x 3. No acute neurological deficits. Speech is normal and follows commands. SKIN: Dry and warm Triage Information Reviewed: Yes Vital Signs On Initial Exam: Initial Vitals Temp Pulse Resp BP Pulse Ox 98.1 F 60 18 132/99 99 03/21/19 02:36 03/21/19 02:36 03/21/19 02:36 03/21/19 02:36 03/21/19 02:36 Vital Signs Reviewed: Yes Diagnostics - Vital Signs Vital Signs Temp Pulse Resp BP Pulse Ox 03/21/19 02:36 98.1 F 60 18 132/99 99 - Laboratory Result Diagrams: 03/21/19 03:07 03/21/19 03:07 Lab Statement: Any lab studies that have been ordered have been reviewed, and results considered in the medical decision making process. - CT ABD/PEL CT CT Interpretation Completed By: Radiologist Summary of CT Findings: CT ABD/PEL IMPRESSION: 1. Biliary stent in position with minimal pneumobilia. 2. Mild fatty infiltration of the liver. 3. Borderline splenomegaly. 4. Pancreatic atrophy with mild distention of the pancreatic duct with slight. fullness of the pancreatic head consistent with stated history of pancreatic. malignancy. 5. Colonic diverticulosis without diverticulitis. THIS REPORT WAS REVIEWED BY DR. DUPREE Re-Evaluation - Re-Evaluation First Eval Re-Evaluation Time: 04:42 Comment: Results of labs and tests were discussed with the patient. He will be discharged to home and follow up with PCP and Dr. Kapoor. He is agreeable with this. Strict return precautions given. Abdominal Pain Male Course/Dx - Course Course Of Treatment: Patient is a 54 y/o M presenting to ED with complaints of sudden onset RUQ pain on 03/20/19 around 2200. He notes a brief episode of N/V at 0215 but notes this resolved quickly. Patient states that he had a bowel movement at 0215 which was normal. PMHx of pancreatic cancer, he is not currently receiving chemo or radiotherapy but has previously. He is followed by Dr. Kapoor at [facility] as well as oncology at [facility], he notes he is scheduled for abdominal surgery in a month. Patient denies any previous abdominal surgeries. On physical exam, RUQ tenderness is noted. Labs showed RBC 4.04, Hgb 12.9, Hct 38, MCV 95, MCH 32, absolute lymphs 0.7, INR 1.41, glucose 117, lactic acid 1, alk phos 117, CRP 1.42, AST 33, ALT 35, amylase 33, lipase < 10. UA was negative. During ED course, patient received fluids. CT ABD/PEL IMPRESSION: 1. Biliary stent in position with minimal pneumobilia. 2. Mild fatty infiltration of the liver. 3. Borderline splenomegaly. 4. Pancreatic atrophy with mild distention of the pancreatic duct with slight. fullness of the pancreatic head consistent with stated history of pancreatic. malignancy. 5. Colonic diverticulosis without diverticulitis. Results of labs and tests were discussed with the patient. He will be discharged to home and follow up with PCP and Dr. Kapoor. He is agreeable with this. Strict return precautions given. - Diagnoses Provider Diagnoses: Abdominal pain Discharge - Sign-Out/Discharge Documenting (check all that apply): Patient Departure - DISCHARGE Patient Received Moderate/Deep Sedation with Procedure: No - Discharge Plan Condition: Stable Disposition: HOME Patient Education Materials: Acute Abdominal Pain (ED) Referrals: Ihsan Hall MD [Primary Care Provider] - 3 Days Virgil Kapoor MD [Medical Doctor] - 3 Days Additional Instructions: PLEASE RETURN TO THE ED IMMEDIATELY FOR WORSENING OR CONCERNING SYMPTOMS. FOLLOW UP WITH YOUR PRIMARY CARE PHYSICIAN AND DR. KAPOOR WITHIN THREE DAYS. - Attestation Statements Document Initiated by Scribe: Yes Documenting Scribe: ALVIN ALVARADO Provider For Whom Moses is Documenting (Include Credential): CHAMP DUPREE MD Scribe Attestation: ALVIN Vu, scribed for CHAMP DUPREE MD on 03/21/19 at 0446. Status of Scribe Document: Ready
[2019-03-21] MEDS ORDERED: NS 0.9% 1000 ML** 1,000 ML IV ONE (02:55)
[2019-03-21] MEDS ORDERED: fentaNYL* 50 MCG/ML 2 ML VIAL (100 MCG VIAL) IV SLOW PU ONE (02:55)
[2019-03-21] MEDS ORDERED: Metoclopramide IV* 5 MG/ML 2 ML VIAL IV SLOW PU ONE (02:55)
[2019-03-21 03:33] LABS: ABS Eosinophils 0.1 10^3/ul (0-0.6); ABS Lymphocytes 0.7 10^3/ul (1.0-4.8); ABS Monocytes 0.7 10^3/ul (0-0.8); ABS Neutrophils 2.6 10^3/ul (1.5-7.7); ALT 35 U/L (7-52); AST 33 U/L (13-39); Albumin 4.3 g/dL (3.2-5.2); Albumin/Globulin Ratio 1.5 (1-3); Alkaline Phosphatase 117 U/L (34-104); Amylase 33 U/L (29-103); Anion Gap 5 mmol/L (2-11); BUN/Creatinine Ratio 14.9 (8-20); Blood Urea Nitrogen 13 mg/dL (6-24); C Reactive Protein 1.42 mg/L (<8.01); CO2 Carbon Dioxide 24 mmol/L (22-32); Calcium 9.5 mg/dL (8.6-10.3); Chloride 110 mmol/L (101-111); EGFR African American 111.5 (>60); EGFR Non-African American 92.1 (>60); Eosinophil % 2.7 %; Globulin 2.9 g/dL (2-4); Glucose 117 mg/dL (70-100); Hematocrit 38 % (42-52); Hemoglobin 12.9 g/dL (14.0-18.0); Magnesium 1.9 mg/dL (1.9-2.7); Mean Corpuscular HGB Conc 34 g/dL (31-36); Mean Corpuscular Hemoglobin 32 pg (27-31); Mean Corpuscular Volume 95 fL (80-94); Mean Platelet Volume 8.7 fL (7.4-10.4); Nucleated Red Blood Cells % 0.1; Platelet Count 78 10^3/uL (150-450); Potassium 3.7 mmol/L (3.5-5.0); Red Blood Count 4.04 10^6 /uL (4.18-5.48); Red Cell Distribution Width 15 % (10.5-15); Sodium 139 mmol/L (135-145); Total Protein 7.2 g/dL (6.4-8.9); White Blood Count 4.2 10^3/uL (3.5-10.8)
[2019-03-21 03:37] LABS: Activated Partial Thrombo Time 34.7 seconds (26.0-36.3); INR 1.41 (0.82-1.09)
[2019-03-21] MEDS ORDERED: Iohexol 300* (CONTRAST) 10 ML SDV IV ONE (03:42)
[2019-03-21 04:01] LABS: Urine Appearance Clear; Urine Bilirubin Negative (Negative); Urine Blood Negative (Negative); Urine Color Amber; Urine Glucose Negative (Negative); Urine Ketones Negative (Negative); Urine Nitrite Negative (Negative); Urine Protein Negative (Negative); Urine Specific Gravity 1.029 (1.010-1.030); Urine Urobilinogen Negative (Negative)
[2019-03-21 04:51] VITALS: BP 115/73
== END 2019-03-21 04:53 | disposition home or self-care (01) ==
LOC: ED 02:35
DX: R10.11 Right upper quadrant pain (principal); R11.2 Nausea with vomiting, unspecified; K83.9 Disease of biliary tract, unspecified; K76.0 Fatty (change of) liver, not elsewhere classified; K57.30 Diverticulosis of large intestine without perforation or abscess without bleeding; Z85.07 Personal history of malignant neoplasm of pancreas; Z88.0 Allergy status to penicillin
CPT/HCPCS: 36415; 74177; 80053; 81003; 82150; 83605; 83690; 83735; 85025; 85060; 85610; 85730; 86140; 96360; 99282; J2765; J3010; Q9967